=== PATIENT | male | born 1990 | race Caucasian/White ===

== ENCOUNTER 2016-03-07 10:25 | Emergency (ER) | payer SELFPAY ==
[2016-03-07 10:32] VITALS: BP 115/63; PULSE 64; RESP 18; TEMP 97.5; O2SAT 98
--- NOTE | 2016-03-07 10:47 | EDPHY ---
H & P Stated Complaint: slipped on ice and hurt lt arm Time Seen by Provider: 03/07/16 10:33 HPI/ROS: CHIEF COMPLAINT: Left elbow pain following mechanical fall HISTORY OF PRESENT ILLNESS: The patient presents to the ED with complaints of left elbow pain and a superficial abrasion following a mechanical fall. The patient did slip while and ice. The patient denies pain in the wrist or shoulder. He has no complaints of numbness or weakness. The patient reports moderate pain with movement. He did not strike his head or lose consciousness. He has no complaints of headache, neck pain, chest pain, abdominal pain or back pain. REVIEW OF SYSTEMS: A comprehensive 10 point review of systems is otherwise negative aside from elements mentioned in the history of present illness. - Personal History Current Tetanus/Diphtheria Vaccine: Yes - Medical/Surgical History Hx Asthma: No Hx Chronic Respiratory Disease: No Hx Diabetes: No Hx Cardiac Disease: No Hx Renal Disease: No Hx Cirrhosis: No Hx Alcoholism: No Hx HIV/AIDS: No Hx Splenectomy or Spleen Trauma: No Other PMH: Denies per pt - Social History Smoking Status: Current every day smoker - Physical Exam Exam: General Appearance: Alert, no distress Head: Atraumatic Eyes: Pupils equal, round, reactive Neck: Nontender, trachea midline Respiratory: No chest wall tender, subcutaneous air, lungs clear bilaterally Cardiovascular: Regular rate and rhythm Abdomen: Abdomen is soft and nontender, pelvis stable Skin: Abrasion to left elbow Back: No midline T/L/S pain Extremities: Tenderness to palpation over left olecranon Neurological: 5/5 strength noted left upper extremity, sensation intact to light touch Constitutional: Initial Vital Signs Temperature (C) 36.4 C 03/07/16 10:29 Heart Rate 64 03/07/16 10:29 Respiratory Rate 18 03/07/16 10:29 Blood Pressure 115/63 03/07/16 10:29 O2 Sat (%) 98 03/07/16 10:29 Allergies/Adverse Reactions: latex Allergy (Verified 03/07/16 10:29) Home Medications: Medication Instructions Recorded NK [No Known Home Meds] 03/07/16 Medical Decision Making - Diagnostics Imaging: Left elbow x-ray: Negative for acute fracture. Images reviewed by myself and discussed with radiologist Dr. Brito. ED Course/Re-evaluation: The patient presents to the ED with a left elbow contusion. There is no evidence of an acute fracture or neurovascular injury. The patient will be discharged home with customary aftercare instructions. He has been informed to follow up with Orthopedics in 7-10 days for any persistent pain as this may be the sign of an injury not seen on the x-ray today. Differential Diagnosis: Differential diagnosis considered includes fracture, sprain, dislocation Departure - Departure Disposition: Home, Routine, Self-Care Clinical Impression: Contusion of elbow Condition: Good Instructions: Contusion in Adults (ED) Additional Instructions: 1. Ice as directed 2. Take Ibuprofen or Motrin 600 mg by mouth three times a day. 3. There is no fracture seen on x-ray today. 4. Please follow up with orthopedic surgeon you have been referred to for any persistent pain or swelling as this may be the sign of an injury not seen on the x-ray today. Please schedule this follow-up visit within the next 7-10 days for any ongoing symptoms. Referrals: Iam Weber MD [Medical Doctor] - As per Instructions
--- NOTE | 2016-03-07 11:25 | DX ---
Left Elbow, 3 Views on March 07, 2016 Indication: Pain following trauma. Findings: The bones are anatomically aligned. No fracture or effusion. Joint spaces are normal. No ef fusion. Impression: Normal. No acute fracture or effusion. Comment: Results were discussed with Dr. Carson Norton.
== END 2016-03-07 11:25 | disposition home or self-care (01) ==
DX: S50.02XA Contusion of left elbow, initial encounter (principal); F17.200 Nicotine dependence, unspecified, uncomplicated; Z91.040 Latex allergy status; W00.9XXA Unspecified fall due to ice and snow, initial encounter